=== PATIENT | female | born 1970 | race Caucasian/White ===

== ENCOUNTER → 2017-09-01 | Outpatient (CLI) | payer BC ==
[~2017-09-01] MED LIST: BUPROPION HCL150 M2 PO; LISINOPRIL5 MG PO; MULTIPLE VITAM1 EACH PO
== END | disposition home or self-care (01) ==
LOC: EKG 08:39
DX: Z01.810 Encounter for preprocedural cardiovascular examination (principal); R94.31 Abnormal electrocardiogram [ECG] [EKG]
CPT/HCPCS: 93005

== ENCOUNTER 2017-09-07 06:18 | Day surgery (SDC) | payer BC ==
[~2017-09-07] VITALS: Ht 162.6 cm; Wt 104.3 kg
[2017-09-07 08:07] VITALS: BP 118/84
[2017-09-07] MEDS ORDERED: NORCO 5/3251 TABLET PO (11:55)
[2017-09-07] MEDS ORDERED: IBUPROFEN800 MG PO (12:32)
[2017-09-07 13:30] VITALS: BP 125/69
[2017-09-07 14:15] VITALS: BP 106/70
== END 2017-09-07 14:25 | disposition home or self-care (01) ==
LOC: SDC
DX: N60.81 Other benign mammary dysplasias of right breast (principal); N60.11 Diffuse cystic mastopathy of right breast; N60.01 Solitary cyst of right breast; N84.0 Polyp of corpus uteri; I10 Essential (primary) hypertension; E66.9 Obesity, unspecified; Z68.39 Body mass index [BMI] 39.0-39.9, adult; Z87.891 Personal history of nicotine dependence; Z88.2 Allergy status to sulfonamides
CPT/HCPCS: 88305; 88307; J0131; J0690; J1885; J2250; J3010; S0020